=== PATIENT | female | born 1965 | race Asian ===

== ENCOUNTER 2016-04-14 16:55 | Emergency (ER) | payer MEDICAID ==
[~2016-04-14] VITALS: Ht 157.5 cm; Wt 59.9 kg
[~2016-04-14 16:55] MED LIST: BACTRIM DS TAB1 EAC1 ORAL; LITHIUM CARBON300 MG ORAL; NORCO 5-325 TA1 EACH ORAL; RISPERDAL2 MG ORAL
[2016-04-14 17:05] VITALS: BP 108/69
[2016-04-14] MEDS ORDERED: KETOCONAZOLE15 GM TOP (17:29)
[2016-04-14 17:31] VITALS: BP 108/69
--- NOTE | 2016-04-14 17:31 | Emergency Room Report ---
History of Present Illness General Chief Complaint: General Complaint Source: Patient Present Illness HPI 51-year-old homeless female complains of bilateral toe discoloration for one month. States that her left middle toe and right fourth toe appeared to be black. Patient states that she has been walking around with her shoes in the street without any socks and that her shoes have been very humid. Patient states that there is no provoking or relieving factors to the toes color and denies any pain, numbness, discharge, loss of pallor, cyanosis, or any other physical complaints outside of its visible appearance. patient denies any history of diabetes, cellulitis, or any other chronic medical condition. Allergies: Coded Allergies: PENICILLINS (Unverified Allergy, Intermediate, 12/21/13) TETRACYCLINES (Unverified Allergy, Mild, 12/21/13) Patient History Past Medical History: see triage record Past Surgical History: unable to obtain Pertinent Family History: none Now: No Reviewed Nursing Documentation: PMH: Agreed, PSxH: Agreed Nursing Documentation-PMH Past Medical History: No Stated History Review of Systems All Other Systems: negative except mentioned in HPI Physical Exam Vital Signs Date Time Temp Pulse Resp B/P Pulse Ox O2 Delivery O2 Flow Rate FiO2 04/14/16 17:00 98.1 82 15 108/69 98 Room Air Sp02 EP Interpretation: reviewed, normal General Appearance: no apparent distress, alert, GCS 15, non-toxic Head: normocephalic, atraumatic ENT: hearing grossly normal, no angioedema, normal voice Neck: full range of motion Respiratory: chest non-tender, lungs clear, normal breath sounds, speaking full sentences Cardiovascular #1: regular rate, rhythm, no edema, no murmur, no rub Cardiovascular #2: 2+ dorsalis pedis (R), 2+ dorsalis pedis (L) Musculoskeletal: gait/station normal, normal range of motion, non-tender, no calf tenderness, other - patient's left 3rd toenail and right 4th toenail with hyperkerotetic growth with advanced onycomycosis of the affected toenails. NTTP , +CMS, Bilateral feet with minimal erythema with increased moisture Neurologic: alert, oriented x3, responsive, motor strength/tone normal, sensory intact, speech normal Psychiatric: judgement/insight normal, memory normal, mood/affect normal, no suicidal/homicidal ideation Skin: normal color, no rash, warm/dry, well hydrated, normal turgor Lymphatic: no adenopathy Medical Decision Making PA Attestation Dr. Su is my supervising physician with whom patient management has been discussed with. Diagnostic Impression: Primary Impression: Onychomycosis Additional Impression: Tinea pedis of both feet ER Course Pt. presents to the ED c/o abnormal toe lesion Ddx considered but are not limited to trench foot, eschar, lo bite, tinea pedis, diabetic ulcer Vital signs: are WNL, pt. is afebrile H&PE are most consistent with tinea pedis with onychomycosis ORDERS: none required at this time, the diagnosis is clinical ED INTERVENTIONS: none required at this time. DISCHARGE: At this time pt. is stable for d/c to home. Will provide printed patient care instructions, and any necessary prescriptions. Care plan and follow up instructions have been discussed with the patient prior to discharge. Last Vital Signs Date Time Temp Pulse Resp B/P Pulse Ox O2 Delivery O2 Flow Rate FiO2 04/14/16 17:05 98.1 15 108/69 98 Room Air 04/14/16 17:00 82 Disposition: HOME, SELF-CARE Condition: Stable Scripts Ketoconazole* (NIZORAL*) 15 Gm Cream..g. 1 APPLIC TOP BID for 14 Days, #60 GM Prov: MARITZA RILEY 04/14/16 Patient Instructions: Athlete's Foot Additional Instructions: Take medication as directed. Patient advised to f/u with PCP. Patient instructed to not share clothing, sports equipment, or towels with other people.Patient is to keep their skin clean and dry and to always dry yourself completely after bathing. Patient told that if they have athlete's foot, to put their socks on before their underwear so that the infection does not spread to other parts of your body. Patient also instructed make sure family members are treated right away if they have symptoms of ringworm. MARITZA RILEY Apr 14, 2016 17:31
== END 2016-04-14 17:39 | disposition home or self-care (01) ==
LOC: EMR 17:25
DX: B35.1 Tinea unguium (principal); B35.3 Tinea pedis; Z88.0 Allergy status to penicillin
CPT/HCPCS: 99283

== ENCOUNTER 2016-07-13 09:43 | Emergency (ER) | payer MEDICAID ==
[~2016-07-13] VITALS: Ht 157.5 cm; Wt 60.8 kg
[~2016-07-13 09:43] MED LIST changes: +KETOCONAZOLE15 GM TOP
[2016-07-13] MEDS ORDERED: CLINDAMYCIN HC150 MG ORAL (09:51)
[2016-07-13] MEDS ORDERED: IBUPROFEN600 MG ORAL (10:18)
[2016-07-13] MEDS ORDERED: ACETAMINOPHEN-1 EAC1 ORAL (10:18)
--- NOTE | 2016-07-13 10:23 | Emergency Room Report ---
History of Present Illness General Chief Complaint: Skin Rash/Abscess Source: Patient Present Illness HPI Patient presents with complaints of pain to her right buttock area 3 days ago she was seen by her primary physician and placed on antibiotics she was not given any pain medication and presents requesting pain medicine Denies any fevers or chills denies any chest pain or shortness of breath pain is worse with sitting on the area Denies any focal weakness Patient is not quite sure that the infection started It was possibly an insect bite at this time pain is 10 out of 10 and worse with touch Allergies: Coded Allergies: PENICILLINS (Unverified Allergy, Intermediate, 12/21/13) TETRACYCLINES (Unverified Allergy, Mild, 12/21/13) Patient History Past Medical History: see triage record Pertinent Family History: none Last Menstrual Period: 06/2016 Reviewed Nursing Documentation: PMH: Agreed, PSxH: Agreed Nursing Documentation-PMH Past Medical History: No Stated History Review of Systems All Other Systems: negative except mentioned in HPI Physical Exam Vital Signs Date Time Temp Pulse Resp B/P Pulse Ox O2 Delivery O2 Flow Rate FiO2 07/13/16 09:45 97.9 89 16 108/70 99 Room Air Sp02 EP Interpretation: reviewed, normal General Appearance: well appearing, no apparent distress Head: normocephalic, atraumatic Eyes: bilateral eye EOMI, bilateral eye PERRL ENT: normal pharynx Neck: supple Respiratory: lungs clear Cardiovascular #1: regular rate, rhythm Gastrointestinal: non tender, soft Musculoskeletal: other - Patient has 2 x 2 area of abscess with fluctuance just to the right lower buttock region there is some mild surrounding erythema in line with cellulitis, no obvious streaking of erythema Neurologic: alert, oriented x3, responsive Skin: other - as above with abscess formation Lymphatic: no adenopathy Procedures Incision and Drainage Incision and Drainage : Consent: Verbal Site: Right buttock area Blade Size: 11 I & D Procedure: betadine prep, sterile drapes applied, sterile dressing applied, gauze wick placed Wound's Depth, Shape: linear Irrigated w/ Saline (ccs): 100 Anesthesia: Lidocaine w/ Epi Volume Anesthetic (ccs): 6 Splint Applied?: No Patient Tolerated: Well Complications: None Progress After local sedation with lidocaine, puncture incision was made, copious amounts of pus was released, further opening of pockets of pus was made with forcep, and packing was placed Medical Decision Making Diagnostic Impression: Primary Impression: Abscess Additional Impression: Encounter for incision and drainage procedure ER Course Patient had incision and drainage performed as noted in the procedural note tolerated The procedure well The area is concerning given the size patient will continue on antibiotics if there is any worsening symptoms such as high fevers or weakness patient will return for further evaluation Last Vital Signs Date Time Temp Pulse Resp B/P Pulse Ox O2 Delivery O2 Flow Rate FiO2 07/13/16 09:45 97.9 89 16 108/70 99 Room Air Status: improved Disposition: HOME, SELF-CARE Condition: Improved Scripts Acetaminophen With Codeine (T#3) (TYLENOL #3 TAB*) Y Tab 1 TAB ORAL Q8H Y for For Pain, #15 TAB Prov: DELMER NIETO D.O. 07/13/16 Ibuprofen* (MOTRIN*) 600 Mg Tablet 600 MG ORAL Q8H Y for For Pain, #30 TAB 0 Refills Prov: DELMER NIETO D.O. 07/13/16 Patient Instructions: Abscess, Incision and Drainage, Care After Additional Instructions: Patient is provided with the discharge instructions notified to follow up with primary doctor in the next 2-3 days otherwise return to the er with any worsening symptoms. Please note that this report is being documented using [employer] technology. This can lead to erroneous entry secondary to incorrect interpretation by the dictating instrument. DELMER NIETO D.O. July 13, 2016 10:23
[2016-07-13 10:25] VITALS: BP 108/70
[2016-07-13 10:30] VITALS: BP 108/70
== END 2016-07-13 10:43 | disposition home or self-care (01) ==
LOC: EMR 10:35
DX: L02.31 Cutaneous abscess of buttock (principal); R21 Rash and other nonspecific skin eruption; Z88.0 Allergy status to penicillin
CPT/HCPCS: 10060

== ENCOUNTER 2016-07-17 09:48 | Emergency (ER) | payer MEDICAID ==
[~2016-07-17] VITALS: Ht 157.5 cm; Wt 61.2 kg
[~2016-07-17 09:48] MED LIST changes: +ACETAMINOPHEN-1 EAC1 ORAL; +CLINDAMYCIN HC150 MG ORAL; +IBUPROFEN600 MG ORAL
--- NOTE | 2016-07-17 09:52 | Emergency Room Report ---
History of Present Illness General Chief Complaint: To Be Triaged Source: Patient Present Illness HPI 51 YOF walk-in for wound check and packing removal after I&D of right buttock abscess 4 days ago on 07/13. Prior to her ED visit she saw an RIGGING ENGINEER at the office of her PMD who "poked her a bunch of times" in the right buttock area of concern then gave her PO Clindamycin which she had been taking. She had the abscess I&Ded in the ED on 07/13 with packing removal. Then she went back to PMD ?yesterday and had packing removed. Her PMD sent her to ED to "have more pus removed from 'right hip abscess' ", however the abscess is clearly in the right buttock. He also told her to STOP taking the PO clindamycin. PMD also told patient she has "candidiasis stomatitis" because she had "thrush" on her tongue. She otherwise denies fever/chills, pain to area, pus drainage. Feels much better. She has history of schizoaffective. Denies HIV, DM, other medical problems. Not on steroids. Allergies: Coded Allergies: PENICILLINS (Unverified Allergy, Intermediate, 12/21/13) TETRACYCLINES (Unverified Allergy, Mild, 12/21/13) Patient History Past Medical History: see triage record, old chart reviewed, psych hx Past Surgical History: none Pertinent Family History: none Social History: Denies: alcohol use, drug use, smoking Now: No Immunizations: UTD Reviewed Nursing Documentation: PMH: Agreed, PSxH: Agreed Review of Systems All Other Systems: negative except mentioned in HPI Physical Exam Sp02 EP Interpretation: reviewed, normal General Appearance: normal inspection, well appearing, no apparent distress, alert, GCS 15, non-toxic Head: normocephalic, atraumatic Eyes: bilateral eye EOMI, bilateral eye PERRL ENT: normal ENT inspection, hearing grossly normal, normal pharynx, no angioedema, normal voice, other - Small area of white plaque of tongue; cannot be scraped off. No plaques in posterior oropharynx. Neck: normal inspection, full range of motion, supple, no bony tend Respiratory: normal inspection, lungs clear, normal breath sounds, no respiratory distress, no retraction, no wheezing Cardiovascular #1: regular rate, rhythm, no edema Gastrointestinal: normal inspection, normal bowel sounds, non tender, soft, no guarding, no hernia Genitourinary: no CVA tenderness Musculoskeletal: normal inspection, back normal, normal range of motion, Bettie' s Sign negative Neurologic: normal inspection, alert, oriented x3, responsive, database administration associate III-XII nml as tested, speech normal Psychiatric: normal inspection, judgement/insight normal, mood/affect normal Skin: other - Right lower buttock: packing visualized, removed. No pus expressed. no surrounding erythema, cellulitis or sign of infection Medical Decision Making Diagnostic Impression: Primary Impression: Wound check, abscess Additional Impression: Mouth disorder ER Course Wound check VSS. Afebrile No pus express Cellulitis much improved compared to picture patient has on phone of area prior to start of Abx Area rebandaged Advised daily cleaning as normal Advised to complete ALL antibiotics PRN pain meds she has ?Thrush - no thrush in oropharynx - per uptodate, clinda, ibuprofen, T3 not known to cause thrush - Thrush would be able to be scraped off, with bleeding underneath. I do not see this on exam - Patient not sexually active, no history of HIV, DM, not on steroids that would predispose to thrush Status: improved Disposition: HOME, SELF-CARE SHAYLA ARMENTA M.D. July 17, 2016 09:52
[2016-07-17] MEDS ORDERED: INVEGA SUS117 MG/0.7 IM (09:58)
[2016-07-17 10:17] VITALS: BP 107/73
[2016-07-17 10:26] VITALS: BP 107/73
== END 2016-07-17 10:26 | disposition home or self-care (01) ==
LOC: EMR 10:02
DX: Z48.03 Encounter for change or removal of drains (principal); K13.29 Other disturbances of oral epithelium, including tongue; Z88.0 Allergy status to penicillin
CPT/HCPCS: 99281

== ENCOUNTER 2017-03-27 10:12 | Emergency (ER) | payer MEDICAID ==
[~2017-03-27] VITALS: Ht 157.5 cm; Wt 56.7 kg
[~2017-03-27 10:12] MED LIST changes: +INVEGA SUS117 MG/0.7 IM
[2017-03-27] MEDS ORDERED: Hydrogen Peroxide 473ml Bottle TOPIC ONE (10:45)
--- NOTE | 2017-03-27 11:05 | Emergency Room Report ---
History of Present Illness General Chief Complaint: Pain Source: Patient Present Illness HPI 52YOF walk-in, homeless, with chronic pain to bilateral feet Associated with reduced sensation to balls of feet Only has 5 pairs of socks, cant wash feet/change socks lately No decreased strength/weakness to lower extremities Allergies: Coded Allergies: PENICILLINS (Unverified Allergy, Intermediate, 12/21/13) TETRACYCLINES (Unverified Allergy, Mild, 12/21/13) Patient History Past Medical History: none Past Surgical History: none Pertinent Family History: none Social History: Denies: smoking, alcohol use, drug use Now: No Immunizations: UTD Reviewed Nursing Documentation: PMH: Agreed, PSxH: Agreed Nursing Documentation-PMH Past Medical History: No History, Except For Hx Hypertension: No - hypotension poor vision Review of Systems All Other Systems: negative except mentioned in HPI Physical Exam Vital Signs Date Time Temp Pulse Resp B/P (MAP) Pulse Ox O2 Delivery O2 Flow Rate FiO2 03/27/17 10:18 97.3 79 16 104/66 96 Room Air Sp02 EP Interpretation: reviewed, normal General Appearance: normal inspection, well appearing, no apparent distress, alert, GCS 15, non-toxic Head: normocephalic, atraumatic Eyes: bilateral eye PERRL, bilateral eye EOMI ENT: normal ENT inspection, hearing grossly normal, normal pharynx, no angioedema, normal voice, TMs + canals normal, uvula midline, moist mucus membranes Neck: normal inspection, full range of motion, supple, thyroid normal, no meningismus, no bony tend Respiratory: normal inspection, lungs clear, normal breath sounds, no rhonchi, no respiratory distress, no retraction, no accessory muscle use, no wheezing, speaking full sentences Cardiovascular #1: regular rate, rhythm, no edema, no JVD, normal capillary refill Gastrointestinal: normal inspection, normal bowel sounds, non tender, soft, no mass, no peritonitis, non-distended, no guarding, no hernia, no pulsatile mass Genitourinary: no CVA tenderness Musculoskeletal: normal inspection, back normal, normal range of motion, no calf tenderness, pelvis stable, Bettie's Sign negative Neurologic: normal inspection, alert, oriented x3, responsive, linux network engineer III-XII nml as tested, motor strength/tone normal, cerebellar normal, normal gait, speech normal Psychiatric: normal inspection, judgement/insight normal, mood/affect normal, no suicidal/homicidal ideation, no delusions Skin: other - Bilateral feet: very dirty, black soot. No foul odor. No erythema or signs of infection. Sensation intact. Lymphatic: normal inspection, no adenopathy Medical Decision Making Diagnostic Impression: Primary Impression: Bilateral foot pain ER Course Glucose normal VSS, Afebrile Was given peroxide to clean feet and additional clean socks ER course: Patient has remained stable during ED stay. Disposition: Patient is to be discharged to home. Patient is instructed to follow up with their primary care doctor within 5 days. Strict return precautions discussed with patient such as fever, chills, worsening/severe pain, nausea, vomiting, which may indicate severe illness. Patient verbalizes understanding and agrees with plan. Please note that this Emergency Department Report was dictated using [employer] software, occasionally this can lead to erroneous entry secondary to interpretation by the dictation equipment Last Vital Signs Date Time Temp Pulse Resp B/P (MAP) Pulse Ox O2 Delivery O2 Flow Rate FiO2 03/27/17 10:18 97.3 79 16 104/66 96 Room Air Status: improved Disposition: HOME, SELF-CARE Referrals: NON PHYSICIAN (PCP) SHAYLA ARMENTA M.D. Mar 27, 2017 11:05
[2017-03-27] MEDS ORDERED: IBUPROFEN600 MG ORAL (11:12)
[2017-03-27 11:15] VITALS: BP 103/66
[2017-03-27 11:23] VITALS: BP 103/66
== END 2017-03-27 11:23 | disposition home or self-care (01) ==
LOC: EMR 10:51
DX: M79.672 Pain in left foot (principal); M79.671 Pain in right foot; G89.29 Other chronic pain; Z88.0 Allergy status to penicillin; Z88.1 Allergy status to other antibiotic agents
CPT/HCPCS: 82962; 99283